=== PATIENT | male | born 1985 | race Caucasian/White ===

== ENCOUNTER 2018-10-27 21:35 | Inpatient (IN) | payer MEDICAID ==
[~2018-10-27] VITALS: Ht 177.8 cm; Wt 72.6 kg
[2018-10-27 21:44] VITALS: BP 128/92
[2018-10-27] MEDS ORDERED: NACL 0.9% 1,000 ML IV SCH (22:01)
[2018-10-27] MEDS ORDERED: KETOROLAC 30 MG/ML VIAL IVP ONE (22:05)
[2018-10-27] MEDS ORDERED: VANCOMYCIN 1,000 MG in DEXTROSE 5% 250 ML IV ONE (22:05)
[2018-10-27 22:25] LABS: BASOPHILS # (AUTO) 0.1 K/uL (0.00-0.22); BASOPHILS % (AUTO) 0.8 % (0.0-2.0); EOSINOPHILS # (AUTO) 0.1 K/uL (0-0.4); EOSINOPHILS % (AUTO) 1.7 % (0.0-4.0); HEMATOCRIT 41.8 % (36-52); HEMOGLOBIN 14.1 g/dL (12.0-18.0); LYMPHOCYTES # (AUTO) 1.7 K/uL (2.0-11.5); LYMPHOCYTES % (AUTO) 19.5 % (20.5-51.1); MEAN CORPUSCULAR HEMOGLOBIN 32 pg (27-31); MEAN CORPUSCULAR HGB CONC 34 g/dL (33-37); MEAN CORPUSCULAR VOLUME 93.7 fL (80-94); MONOCYTES # (AUTO) 0.5 K/uL (0.8-1.0); MONOCYTES % (AUTO) 6.4 % (1.7-9.3); NEUTROPHILS # (AUTO) 6.1 K/uL (1.8-7.7); NEUTROPHILS % (AUTO) 71.6 % (42.2-75.2); PLATELET COUNT (AUTO) 390 K/uL (140-450); RED BLOOD CELL COUNT(AUTO) 4.46 MIL/uL (4.20-6.10); WHITE BLOOD COUNT (AUTO) 8.6 K/uL (4.8-10.8)
[2018-10-27] MEDS ORDERED: VANCOMYCIN 1,000 MG VIAL ONE (22:32)
[2018-10-27 22:43] LABS: ACETAMINOPHEN < 0.5 ug/ml (10-30); SALICYLATE 13.7 mg/dL (2.8-20.0)
[2018-10-27 22:45] LABS: PROTHROMBIN TIME 8.7 secs (10.8-13.4)
[2018-10-27 22:46] LABS: ANION GAP 11.9 (8-16); CARBON DIOXIDE 27.8 mmol/L (21-32); POTASSIUM 3.7 mmol/L (3.5-5.1)
[2018-10-27 22:47] LABS: CREATININE 0.9 mg/dL (0.7-1.3); TOTAL BILIRUBIN 0.1 mg/dL (0.0-1.0)
[2018-10-27] MEDS ORDERED: MIDAZOLAM 2 MG/2 ML VIAL IVP ONE (22:55)
[2018-10-27] MEDS ORDERED: KETAMINE 10 MG/ML UD SYR **ER IVP ONE (22:55)
[2018-10-27 23:15] LABS: BARBITURATE, URINE NEG ng/ml (NEG <=200)
[2018-10-27 23:16] LABS: BENZODIAZEPINE, URINE NEG ng/mL (NEG <=200); CANNABINOID, URINE POS ng/mL (NEG <=50); COCAINE, URINE NEG ng/mL (NEG <=300); OPIATE, URINE NEG ng/mL (NEG <=2000); PHENCYCLIDINE SCREEN,URINE NEG ng/mL (NEG <=25)
[2018-10-27 23:19] LABS: APPEARANCE,URINE CLEAR (CLEAR); BILIRUBIN,URINE NEGATIVE (NEGATIVE); BLOOD, URINE NEGATIVE (NEGATIVE); COLOR,URINE YELLOW (YELLOW); LEUKOCYTE ESTERASE ,URINE NEGATIVE (NEGATIVE); NITRITE, URINE NEGATIVE (NEGATIVE); UGLUCOSE NEGATIVE (NEGATIVE)
[2018-10-28] MEDS ORDERED: DOCUSATE SODIUM 100 MG GELCAP PO PRN (00:20)
[2018-10-28] MEDS ORDERED: HYDROcodone/APAP 7.5/325 MG 1 TAB PO PRN (00:20)
[2018-10-28] MEDS ORDERED: ACETAMINOPHEN 325 MG TAB PO PRN (00:20)
[2018-10-28] MEDS ORDERED: ONDANSETRON 4 MG/2 ML VIAL IM/IVP PRN (00:20)
[2018-10-28] MEDS ORDERED: FAMOTIDINE 20 MG/2 ML VIAL IV PRN (00:20)
[2018-10-28] MEDS ORDERED: LORazepam 2 MG/ML VIAL IM/IVP PRN (00:20)
[2018-10-28] MEDS ORDERED: ALBUTEROL SULFATE/IPRATROPIU 3 ML SOL IH PRN (02:55)
[2018-10-28] MEDS ORDERED: VANCOMYCIN PER PHARMACY MC PRN (03:00)
[2018-10-28] MEDS ORDERED: DEXT 5% /NACL 0.9% 1,000 ML IV SCH (03:05)
[2018-10-28 03:56] LABS: MAGNESIUM 1.9 mg/dL (1.8-2.4); PHOSPHORUS 3.2 mg/dL (2.5-4.9)
[2018-10-28 03:57] LABS: CHOL/HDL RATIO 2.8 (1-4.5); FREE T4 (FREE THYROXINE) 0.82 ng/dL (0.76-1.46); THYROID STIMULATING HORMONE 0.49 uIU/mL (0.34-3.74)
[2018-10-28 04:20] VITALS: BP 126/81
[2018-10-28] MEDS ORDERED: NON ADHERENT DRESSING TP PRN (05:20)
[2018-10-28] MEDS ORDERED: NACL 0.9% IRR 250 ML BOTTLE IR PRN (05:20)
[2018-10-28] MEDS ORDERED: ALBUTEROL SULFATE/IPRATROPIU 3 ML SOL IH SCH ×2 (06:00→08:22)
[2018-10-28 08:00] VITALS: BP 120/79
[2018-10-28] MEDS ORDERED: LACTOBACILLUS RHAMNOSUS GG 1 EACH CAP PO SCH (09:00)
[2018-10-28] MEDS ORDERED: VANCOMYCIN 1,250 MG in DEXTROSE 5% 250 ML IV SCH (09:00)
[2018-10-28] MEDS ORDERED: NACL 0.9% 1,000 ML IV SCH (11:50)
[2018-10-28 12:00] VITALS: BP 112/61
[2018-10-28 12:20] LABS: BASOPHILS # (AUTO) 0.1 K/uL (0.00-0.22); BASOPHILS % (AUTO) 0.7 % (0.0-2.0); EOSINOPHILS # (AUTO) 0.2 K/uL (0-0.4); EOSINOPHILS % (AUTO) 2.9 % (0.0-4.0); HEMOGLOBIN 13.4 g/dL (12.0-18.0); LYMPHOCYTES # (AUTO) 1.6 K/uL (2.0-11.5); LYMPHOCYTES % (AUTO) 22.8 % (20.5-51.1); MEAN CORPUSCULAR HEMOGLOBIN 31 pg (27-31); MEAN CORPUSCULAR HGB CONC 33 g/dL (33-37); MEAN CORPUSCULAR VOLUME 94.1 fL (80-94); MONOCYTES # (AUTO) 0.4 K/uL (0.8-1.0); MONOCYTES % (AUTO) 5.9 % (1.7-9.3); NEUTROPHILS # (AUTO) 4.7 K/uL (1.8-7.7); NEUTROPHILS % (AUTO) 67.7 % (42.2-75.2); PLATELET COUNT (AUTO) 373 K/uL (140-450); RED BLOOD CELL COUNT(AUTO) 4.25 MIL/uL (4.20-6.10)
[2018-10-28 12:27] LABS: ANION GAP 11.6 (8-16); CARBON DIOXIDE 26.1 mmol/L (21-32); CREATININE 0.6 mg/dL (0.7-1.3); POTASSIUM 3.7 mmol/L (3.5-5.1)
[2018-10-28 12:33] LABS: MAGNESIUM 1.7 mg/dL (1.8-2.4); PHOSPHORUS 2.4 mg/dL (2.5-4.9)
[2018-10-28] MEDS ORDERED: VANCOMYCIN 1GM/DEXT 5% PREMIX 200 ML IV SCH (22:00)
== END 2018-10-28 14:45 | disposition left against medical advice (07) | DRG 812 ==
LOC: MED 21:35 → MTU 10-28 00:24
PROVIDERS: ADMIT General Practice; ATTEND General Practice
PROC: 0HQFXZZ Repair Right Hand Skin, External Approach (ICD-10-PCS; principal; 2018-10-28)
DX: T43.621A Poisoning by amphetamines, accidental (unintentional), initial encounter (principal); G92 Toxic encephalopathy; E44.0 Moderate protein-calorie malnutrition; E83.39 Other disorders of phosphorus metabolism; K72.90 Hepatic failure, unspecified without coma; E83.42 Hypomagnesemia; F15.10 Other stimulant abuse, uncomplicated; L03.113 Cellulitis of right upper limb; S61.411A Laceration without foreign body of right hand, initial encounter; Z53.21 Procedure and treatment not carried out due to patient leaving prior to being seen by health care provider; E86.0 Dehydration; Z91.19 Patient's noncompliance with other medical treatment and regimen; Z68.23 Body mass index [BMI] 23.0-23.9, adult; X58.XXXA Exposure to other specified factors, initial encounter; Y93.89 Activity, other specified; Y92.89 Other specified places as the place of occurrence of the external cause; Y99.8 Other external cause status
CPT/HCPCS: 36415; 70450; 71045; 73090; 80048; 80053; 80305; 81003; 82140; 82150; 83036; 83605; 83690; 83735; 83880; 84100; 84439; 84443; 85025; 85610; 85730; 87040; 87081; 90471; 90715; 93005; 96365; 99291; G0480; G0482; G0500; J1885; J2250; J3370; J7030; J7042; J7060; J7620; Q0092

== ENCOUNTER 2018-10-28 17:55 | Emergency (ER) | payer MEDICAID ==
[~2018-10-28] VITALS: Ht 180.3 cm; Wt 77.1 kg
[2018-10-28 17:57] VITALS: BP 137/86
--- NOTE | 2018-10-28 18:05 | NUR ---
SPEAKING WITH LISA. RAYNA Peck RN
--- NOTE | 2018-10-28 18:20 | NUR ---
PRE-B0OK , HAD BEEN SEEN IN OUR ER AND ADMITTED TODAY; PT ALSO AMA FROM INPATIENT EDEMA PAIN STATES HAND WRIST IS NUMB BUT IN PAIN--- REFUSES TREATMENT OR EXAMINATION
[2018-10-28 18:23] VITALS: BP 137/86
--- NOTE | 2018-10-28 18:24 | NUR ---
PATIENT BIB [place] [employer]. PATIENT EXAMINED BY . PATIENT MEDICALLY CLEARED AND RELEASED IN CUSTODY IN STABLE CONDITION. ORIGINAL PRE-BOOK FORM GIVEN TO OFFICER .
== END 2018-10-28 18:24 ==
LOC: MED 17:55
DX: S41.101A Unspecified open wound of right upper arm, initial encounter (principal); R03.0 Elevated blood-pressure reading, without diagnosis of hypertension; F15.90 Other stimulant use, unspecified, uncomplicated; F12.90 Cannabis use, unspecified, uncomplicated; Z02.89 Encounter for other administrative examinations; X58.XXXA Exposure to other specified factors, initial encounter; Y93.89 Activity, other specified; Y92.89 Other specified places as the place of occurrence of the external cause; Y99.8 Other external cause status
CPT/HCPCS: 99283